=== PATIENT | female | born 1950 | race Caucasian/White ===

== ENCOUNTER 2020-11-14 15:52 | Outpatient (REF) | payer MEDICARE, OTHER, SELFPAY ==
[2020-11-14 18:13] LABS: Vitamin B12 1344 pg/mL (200-900)
[2020-11-15 08:38] LABS: Syphilis Screen Nonreactive (Nonreactive)
[2020-11-15 17:32] LABS: Lyme Abs Screen <0.90 index
== END 2020-11-14 15:53 | disposition home or self-care (01) ==
LOC: HO.LAB 15:52
PROVIDERS: PCP Internal Medicine; Visit Provider Psychiatry & Neurology Neurology
DX: G31.84 Mild cognitive impairment of uncertain or unknown etiology (principal)
CPT/HCPCS: 36415; 82607; 86617; 86618; 86780